=== PATIENT | female | born 1955 | race Two or more races ===

== ENCOUNTER 2018-02-11 07:10 | Outpatient (CLI) | payer OTHER | END 2018-02-11 07:15 | disposition home or self-care (01) | LOC: SONOGRAMA 07:10 | DX: E04.1 Nontoxic single thyroid nodule (principal) ==

== ENCOUNTER 2018-12-31 08:52 | Outpatient (CLI) | payer OTHER | END 2018-12-31 08:54 | disposition home or self-care (01) | LOC: RX STUDY 08:52 | DX: N81.89 Other female genital prolapse (principal); N39.46 Mixed incontinence ==